=== PATIENT | male | born 1940 | race Caucasian/White ===

== ENCOUNTER 2018-05-23 19:46 | Inpatient (IN) | payer MEDICARE, MEDICAID ==
[~2018-05-23] VITALS: Ht 172.7 cm; Wt 86.8 kg
[2018-05-23] MEDS ORDERED: APIX2.5T PO (20:22)
[2018-05-23] MEDS ORDERED: HYDR100T28 PO (20:22)
[2018-05-23] MEDS ORDERED: MIRT15 PO (20:22)
[2018-05-23] MEDS ORDERED: PHOSLOC PO (20:22)
[2018-05-23] MEDS ORDERED: ASPI81TA39 PO (20:22)
[2018-05-23] MEDS ORDERED: AMLO-512 PO (20:22)
[2018-05-23] MEDS ORDERED: SEVE800 PO (20:22)
[2018-05-23] MEDS ORDERED: AMIO200T8 PO (20:22)
[2018-05-23 20:29] LABS: GLUCOSE,POINT OF CARE 197 MG/DL (70-110)
[2018-05-23] MEDS ORDERED: DEXTROSE 50%-WATER 25 GM/50 ML SYRINGE IVP ONE (20:30)
[2018-05-23 20:48] LABS: BASOPHILS % (AUTO) 0.4 % (0.0-2.0); EOSINOPHILS % (AUTO) 1.5 % (1.0-6.0); HEMATOCRIT 30.5 % (41-53); LYMPHOCYTES # (AUTO) 0.4 K/uL (1.0-4.8); LYMPHOCYTES % (AUTO) 5.4 % (22.0-44.0); MEAN CORPUSCULAR HGB CONC 32.9 G/dL (31.0-37.0); MEAN CORPUSCULAR VOLUME 98 fL (80-100); NEUTROPHILS # (AUTO) 6.6 K/uL (1.8-7.7); NEUTROPHILS % (AUTO) 80.7 % (40.0-70.0); PLATELET COUNT (AUTO) 119 K/uL (150-450); RED BLOOD CELL COUNT(AUTO) 3.13 MIL/uL (4.50-5.90); RED CELL DISTRIBUTION WIDTH 15.2 % (11.5-14.5)
[2018-05-23 20:57] LABS: CALCIUM, TOTAL 8.7 mg/dL (8.8-10.5); CREATININE 4.31 mg/dL (0.60-1.30); POTASSIUM 4.6 mmol/L (3.5-5.1)
[2018-05-23 21:02] LABS: PROTHROMBIN TIME 10.5 SEC (9.4-11.6)
[2018-05-23 21:21] LABS: ALBUMIN 2.7 g/dL (3.4-5.0); BILIRUBIN,TOTAL 0.3 mg/dL (0.1-1.0); TOTAL PROTEIN, SERUM 5.7 g/dL (6.4-8.2)
[2018-05-23 21:30] LABS: LACTIC ACID 0.9 mmol/L (0.4-2.0)
[2018-05-23 21:38] LABS: GLUCOSE,POINT OF CARE 101 MG/DL (70-110)
[2018-05-23 22:39] LABS: GLUCOSE,POINT OF CARE 54 MG/DL (70-110)
[2018-05-23] MEDS ORDERED: ONDANSETRON HCL 4 MG/2 ML VIAL IVP PRN ×2 (22:45→23:45)
[2018-05-23] MEDS ORDERED: ACETAMINOPHEN 325 MG TABLET PO PRN (22:45)
[2018-05-23] MEDS ORDERED: DEXTROSE 5%-0.45% SODIUM CHL 1,000 ML IV ONE (22:45)
[2018-05-23] MEDS ORDERED: 0.9% SODIUM CHLORIDE 10 ML SYRINGE IVP PRN ×2 (22:45→23:45)
[2018-05-23] MEDS ORDERED: DEXTROSE 10%-WATER 1,000 ML IV SCH (23:45)
[2018-05-23] MEDS ORDERED: ZOLPIDEM TARTRATE 5 MG TABLET PO PRN (23:45)
[2018-05-24] VITALS (7 sets, daily range): BP systolic 92–153; BP diastolic 36–67
[2018-05-24 01:18] LABS: GLUCOMETER DEV NAME(LOC) 5N.1; GLUCOSE,POINT OF CARE 100 MG/DL (70-110)
[2018-05-24] MEDS: APIXABAN 2.5 MG TABLET PO SCH ×3 (01:38→22:07)
[2018-05-24] MEDS: DEXTROSE 50%-WATER 25 GM/50 ML SYRINGE IVP PRN ×13 (03:17→23:03)
[2018-05-24 04:39] LABS: GLUCOMETER DEV NAME(LOC) 5N.1; GLUCOSE,POINT OF CARE 60 MG/DL (70-110)
[2018-05-24 04:39] LABS: GLUCOMETER DEV NAME(LOC) 5N.1; GLUCOSE,POINT OF CARE 95 MG/DL (70-110)
[2018-05-24 06:35] LABS: BASOPHILS % (AUTO) 0.2 % (0.0-2.0); EOSINOPHILS % (AUTO) 0.7 % (1.0-6.0); HEMATOCRIT 28.3 % (41-53); HEMOGLOBIN 9.3 g/dL (13.5-17.5); LYMPHOCYTES # (AUTO) 0.5 K/uL (1.0-4.8); LYMPHOCYTES % (AUTO) 4.9 % (22.0-44.0); MEAN CORPUSCULAR HGB CONC 32.9 G/dL (31.0-37.0); MEAN CORPUSCULAR VOLUME 97 fL (80-100); MONOCYTES # (AUTO) 1.2 K/uL (0.1-1.0); MONOCYTES % (AUTO) 11.3 % (2.0-9.0); NEUTROPHILS # (AUTO) 8.7 K/uL (1.8-7.7); NEUTROPHILS % (AUTO) 82.9 % (40.0-70.0); PLATELET COUNT (AUTO) 116 K/uL (150-450); RED BLOOD CELL COUNT(AUTO) 2.91 MIL/uL (4.50-5.90); RED CELL DISTRIBUTION WIDTH 15.3 % (11.5-14.5)
[2018-05-24 06:44] LABS: GLUCOMETER DEV NAME(LOC) 5N.1; GLUCOSE,POINT OF CARE 88 MG/DL (70-110)
[2018-05-24 06:44] LABS: GLUCOMETER DEV NAME(LOC) 5N.1; GLUCOSE,POINT OF CARE 37 MG/DL (70-110)
[2018-05-24 06:55] LABS: ALBUMIN 2.6 g/dL (3.4-5.0); BILIRUBIN,TOTAL 0.4 mg/dL (0.1-1.0); CALCIUM, TOTAL 8.7 mg/dL (8.8-10.5); CREATININE 4.8 mg/dL (0.60-1.30); POTASSIUM 4.7 mmol/L (3.5-5.1); TOTAL PROTEIN, SERUM 5.3 g/dL (6.4-8.2)
[2018-05-24] MEDS: SEVELAMER CARBONATE 800 MG TABLET PO SCH ×3 (08:00→17:28)
[2018-05-24] MEDS: CALCIUM ACETATE 667 MG CAPSULE PO SCH (08:00)
[2018-05-24] MEDS: PANTOPRAZOLE SODIUM 40 MG/VIAL IVP SCH (09:00)
[2018-05-24] MEDS: HydrALAZINE HCL 50 MG TABLET PO SCH ×3 (09:00→21:00)
[2018-05-24] MEDS: AmLODIPine BESYLATE 10 MG TABLET PO SCH (09:00)
[2018-05-24] MEDS: ASPIRIN 81 MG CHEWABLE TABLET PO SCH (09:00)
[2018-05-24] MEDS: AMIODARONE HCL 200 MG TABLET PO SCH (09:00)
[2018-05-24] MEDS: DEXTROSE 10%-WATER 1,000 ML IV PRN ×2 (11:35→22:57)
[2018-05-24] MEDS ORDERED: DEXTROSE 50%-WATER 25 GM/50 ML SYRINGE IVP ONE ×2 (11:54→12:20)
[2018-05-24 15:59] LABS: GLUCOSE,POINT OF CARE 68 MG/DL (70-110)
[2018-05-24 15:59] LABS: GLUCOSE,POINT OF CARE 62 MG/DL (70-110)
[2018-05-24 15:59] LABS: GLUCOSE,POINT OF CARE 108 MG/DL (70-110)
[2018-05-24 15:59] LABS: GLUCOSE,POINT OF CARE 52 MG/DL (70-110)
[2018-05-24 15:59] LABS: GLUCOSE,POINT OF CARE 33 MG/DL (70-110)
[2018-05-24 17:29] LABS: GLUCOSE,POINT OF CARE 43 MG/DL (70-110)
[2018-05-24 18:28] LABS: GLUCOSE,POINT OF CARE 77 MG/DL (70-110)
[2018-05-24 19:53] LABS: GLUCOSE,POINT OF CARE 79 MG/DL (70-110)
[2018-05-24] MEDS ORDERED: DIGOXIN 250 MCG/ML 2 ML AMP ONE (19:59)
[2018-05-24] MEDS: MIRTAZAPINE 15 MG TABLET PO SCH (21:00)
[2018-05-24 21:24] LABS: GLUCOSE,POINT OF CARE 44 MG/DL (70-110)
[2018-05-24 21:24] LABS: GLUCOSE,POINT OF CARE 36 MG/DL (70-110)
[2018-05-24 21:24] LABS: GLUCOSE,POINT OF CARE 38 MG/DL (70-110)
[2018-05-24 23:28] LABS: GLUCOSE,POINT OF CARE 62 MG/DL (70-110)
[2018-05-25] VITALS: BP 91/36
[2018-05-25] MEDS: DEXTROSE 50%-WATER 25 GM/50 ML SYRINGE IVP PRN ×15 (00:07→22:04)
[2018-05-25 00:19] LABS: GLUCOSE,POINT OF CARE 30 MG/DL (70-110)
[2018-05-25 00:19] LABS: GLUCOSE,POINT OF CARE 45 MG/DL (70-110)
[2018-05-25 01:19] LABS: GLUCOSE,POINT OF CARE 40 MG/DL (70-110)
[2018-05-25 02:14] LABS: GLUCOMETER DEV NAME(LOC) 5S.1; GLUCOSE,POINT OF CARE 38 MG/DL (70-110)
[2018-05-25 02:14] LABS: GLUCOMETER DEV NAME(LOC) 5S.1; GLUCOSE,POINT OF CARE 108 MG/DL (70-110)
[2018-05-25 02:14] LABS: GLUCOMETER DEV NAME(LOC) 5S.1; GLUCOSE,POINT OF CARE 63 MG/DL (70-110)
[2018-05-25 02:14] LABS: GLUCOMETER DEV NAME(LOC) 5S.1; GLUCOSE,POINT OF CARE 43 MG/DL (70-110)
[2018-05-25 02:14] LABS: GLUCOMETER DEV NAME(LOC) 5S.1; GLUCOSE,POINT OF CARE 58 MG/DL (70-110)
[2018-05-25 04:00] VITALS: BP 90/39
[2018-05-25 05:04] LABS: GLUCOSE,POINT OF CARE 49 MG/DL (70-110)
[2018-05-25 05:04] LABS: GLUCOSE,POINT OF CARE 52 MG/DL (70-110)
[2018-05-25 05:04] LABS: GLUCOSE,POINT OF CARE 36 MG/DL (70-110)
[2018-05-25 05:04] LABS: GLUCOSE,POINT OF CARE 51 MG/DL (70-110)
[2018-05-25 05:04] LABS: GLUCOSE,POINT OF CARE 64 MG/DL (70-110)
[2018-05-25 05:41] LABS: % IRON SATURATION 55.7 % (30-44)
[2018-05-25 06:59] LABS: GLUCOSE,POINT OF CARE 34 MG/DL (70-110)
[2018-05-25 07:17] LABS: BASOPHILS % (AUTO) 0.7 % (0.0-2.0); EOSINOPHILS % (AUTO) 2.5 % (1.0-6.0); HEMATOCRIT 26.8 % (41-53); HEMOGLOBIN 8.7 g/dL (13.5-17.5); LYMPHOCYTES # (AUTO) 0.9 K/uL (1.0-4.8); LYMPHOCYTES % (AUTO) 11.1 % (22.0-44.0); MEAN CORPUSCULAR HEMOGLOBIN 31.8 pg (26.0-34.0); MEAN CORPUSCULAR HGB CONC 32.6 G/dL (31.0-37.0); MEAN CORPUSCULAR VOLUME 98 fL (80-100); MONOCYTES # (AUTO) 1.2 K/uL (0.1-1.0); MONOCYTES % (AUTO) 14.8 % (2.0-9.0); NEUTROPHILS # (AUTO) 5.6 K/uL (1.8-7.7); NEUTROPHILS % (AUTO) 70.9 % (40.0-70.0); PLATELET COUNT (AUTO) 123 K/uL (150-450); RED BLOOD CELL COUNT(AUTO) 2.75 MIL/uL (4.50-5.90); RED CELL DISTRIBUTION WIDTH 15.5 % (11.5-14.5)
[2018-05-25 07:55] LABS: CALCIUM, TOTAL 8.5 mg/dL (8.8-10.5); CREATININE 6.1 mg/dL (0.60-1.30); POTASSIUM 4.3 mmol/L (3.5-5.1)
[2018-05-25 08:00] VITALS: BP 138/50
[2018-05-25] MEDS: PANTOPRAZOLE SODIUM 40 MG/VIAL IVP SCH (08:10)
[2018-05-25] MEDS: CALCIUM ACETATE 667 MG CAPSULE PO SCH (09:13)
[2018-05-25] MEDS: SEVELAMER CARBONATE 800 MG TABLET PO SCH ×3 (09:13→17:19)
[2018-05-25] MEDS: ASPIRIN 81 MG CHEWABLE TABLET PO SCH (09:13)
[2018-05-25] MEDS: APIXABAN 2.5 MG TABLET PO SCH ×2 (09:13→21:30)
[2018-05-25] MEDS: HydrALAZINE HCL 50 MG TABLET PO SCH ×2 (09:13→21:00)
[2018-05-25] MEDS: AmLODIPine BESYLATE 10 MG TABLET PO SCH (09:14)
[2018-05-25] MEDS: AMIODARONE HCL 200 MG TABLET PO SCH (09:14)
[2018-05-25 09:34] LABS: GLUCOSE,POINT OF CARE 41 MG/DL (70-110)
[2018-05-25 09:34] LABS: GLUCOSE,POINT OF CARE 43 MG/DL (70-110)
[2018-05-25] MEDS: DEXTROSE 10%-WATER 1,000 ML IV PRN (09:51)
[2018-05-25 09:54] LABS: GLUCOSE,POINT OF CARE 87 MG/DL (70-110)
[2018-05-25 10:38] LABS: GLUCOSE,POINT OF CARE 147 MG/DL (70-110)
[2018-05-25 12:00] VITALS: BP 110/44
[2018-05-25 12:34] LABS: GLUCOSE,POINT OF CARE 87 MG/DL (70-110)
[2018-05-25 12:34] LABS: GLUCOSE,POINT OF CARE 32 MG/DL (70-110)
[2018-05-25 13:38] LABS: GLUCOSE,POINT OF CARE 38 MG/DL (70-110)
[2018-05-25 13:54] LABS: C.DIFF GDH ANTIGEN, Stool Negative (Negative); C.DIFF TOXINS A&B, Stool Negative (Negative)
[2018-05-25 14:48] LABS: GLUCOSE,POINT OF CARE 52 MG/DL (70-110)
[2018-05-25 15:09] LABS: GLUCOSE,POINT OF CARE 76 MG/DL (70-110)
[2018-05-25 16:00] VITALS: BP 112/67
[2018-05-25 16:03] LABS: GLUCOSE,POINT OF CARE 45 MG/DL (70-110)
[2018-05-25] MEDS ORDERED: NALOXONE HCL 1 MG/ML 2 ML SYG IV ONE (16:49)
[2018-05-25] MEDS ORDERED: DEXTROSE 50%-WATER 25 GM/50 ML SYRINGE IVP ONE (16:49)
[2018-05-25] MEDS ORDERED: ETOMIDATE 2 MG/ML 10 ML VIAL IV ONE (16:49)
[2018-05-25] MEDS ORDERED: SUCCINYLCHOLINE CHLORIDE 20 MG/ML 10 ML VIAL IM ONE (16:49)
[2018-05-25 17:08] LABS: GLUCOSE,POINT OF CARE 93 MG/DL (70-110)
[2018-05-25 18:04] LABS: GLUCOSE,POINT OF CARE 75 MG/DL (70-110)
[2018-05-25 19:39] LABS: GLUCOSE,POINT OF CARE 54 MG/DL (70-110)
[2018-05-25 20:00] VITALS: BP_SYST 109; BP_SYST 97; BP_DIAS 28; BP_DIAS 39
[2018-05-25] MEDS: MIRTAZAPINE 15 MG TABLET PO SCH (21:30)
[2018-05-26] VITALS: BP 97/28
[2018-05-26 03:11] LABS: GLUCOSE,POINT OF CARE 67 MG/DL (70-110)
[2018-05-26 04:00] VITALS: BP 93/55
[2018-05-26 04:15] LABS: GLUCOSE,POINT OF CARE 56 MG/DL (70-110)
[2018-05-26 04:15] LABS: GLUCOSE,POINT OF CARE 99 MG/DL (70-110)
[2018-05-26 04:15] LABS: GLUCOSE,POINT OF CARE 100 MG/DL (70-110)
[2018-05-26 04:15] LABS: GLUCOSE,POINT OF CARE 121 MG/DL (70-110)
[2018-05-26 04:15] LABS: GLUCOSE,POINT OF CARE 89 MG/DL (70-110)
[2018-05-26 04:15] LABS: GLUCOSE,POINT OF CARE 92 MG/DL (70-110)
[2018-05-26 04:15] LABS: GLUCOSE,POINT OF CARE 71 MG/DL (70-110)
[2018-05-26 04:15] LABS: GLUCOSE,POINT OF CARE 89 MG/DL (70-110)
[2018-05-26 04:15] LABS: GLUCOSE,POINT OF CARE 101 MG/DL (70-110)
[2018-05-26 04:15] LABS: GLUCOSE,POINT OF CARE 127 MG/DL (70-110)
[2018-05-26 06:49] LABS: GLUCOSE,POINT OF CARE 137 MG/DL (70-110)
[2018-05-26 06:49] LABS: GLUCOSE,POINT OF CARE 120 MG/DL (70-110)
[2018-05-26 08:00] VITALS: BP 157/109
[2018-05-26] MEDS: CALCIUM ACETATE 667 MG CAPSULE PO SCH (08:20)
[2018-05-26] MEDS: PANTOPRAZOLE SODIUM 40 MG/VIAL IVP SCH (08:20)
[2018-05-26] MEDS: SEVELAMER CARBONATE 800 MG TABLET PO SCH ×3 (08:20→17:29)
[2018-05-26] MEDS: AMIODARONE HCL 200 MG TABLET PO SCH (08:21)
[2018-05-26] MEDS: APIXABAN 2.5 MG TABLET PO SCH ×2 (08:21→21:52)
[2018-05-26] MEDS: ASPIRIN 81 MG CHEWABLE TABLET PO SCH (08:23)
[2018-05-26] MEDS: AmLODIPine BESYLATE 10 MG TABLET PO SCH (09:00)
[2018-05-26] MEDS: HydrALAZINE HCL 50 MG TABLET PO SCH ×2 (09:00→21:00)
[2018-05-26 09:09] LABS: BASOPHILS % (AUTO) 0.3 % (0.0-2.0); EOSINOPHILS % (AUTO) 2.3 % (1.0-6.0); HEMATOCRIT 27.5 % (41-53); HEMOGLOBIN 8.9 g/dL (13.5-17.5); LYMPHOCYTES # (AUTO) 0.6 K/uL (1.0-4.8); LYMPHOCYTES % (AUTO) 11.1 % (22.0-44.0); MEAN CORPUSCULAR HEMOGLOBIN 31.5 pg (26.0-34.0); MEAN CORPUSCULAR HGB CONC 32.5 G/dL (31.0-37.0); MEAN CORPUSCULAR VOLUME 97 fL (80-100); MONOCYTES % (AUTO) 16.2 % (2.0-9.0); NEUTROPHILS # (AUTO) 4.1 K/uL (1.8-7.7); NEUTROPHILS % (AUTO) 70.1 % (40.0-70.0); PLATELET COUNT (AUTO) 126 K/uL (150-450); RED BLOOD CELL COUNT(AUTO) 2.84 MIL/uL (4.50-5.90); RED CELL DISTRIBUTION WIDTH 14.9 % (11.5-14.5)
[2018-05-26 09:29] LABS: GLUCOSE,POINT OF CARE 115 MG/DL (70-110)
[2018-05-26 09:29] LABS: GLUCOSE,POINT OF CARE 111 MG/DL (70-110)
[2018-05-26 09:31] LABS: CALCIUM, TOTAL 8.7 mg/dL (8.8-10.5); CREATININE 7.43 mg/dL (0.60-1.30); POTASSIUM 5.1 mmol/L (3.5-5.1)
[2018-05-26 10:38] LABS: GLUCOSE,POINT OF CARE 131 MG/DL (70-110)
[2018-05-26 11:08] LABS: GLUCOSE,POINT OF CARE 113 MG/DL (70-110)
[2018-05-26 12:00] VITALS: BP 165/110
[2018-05-26] MEDS ORDERED: SODIUM CHLORIDE 0.9% 2,000 ML IV ONE (12:31)
[2018-05-26 12:59] LABS: GLUCOSE,POINT OF CARE 122 MG/DL (70-110)
[2018-05-26 12:59] LABS: GLUCOSE,POINT OF CARE 136 MG/DL (70-110)
[2018-05-26 15:39] LABS: GLUCOSE,POINT OF CARE 116 MG/DL (70-110)
[2018-05-26 16:00] VITALS: BP 121/89
[2018-05-26 16:29] LABS: GLUCOSE,POINT OF CARE 119 MG/DL (70-110)
[2018-05-26] MEDS ORDERED: LORazepam 2 MG/ML VIAL ONE (17:40)
[2018-05-26] MEDS ORDERED: LORazepam 2 MG/ML VIAL IVP ONE (17:45)
[2018-05-26 18:29] LABS: CALCIUM, TOTAL 8.5 mg/dL (8.8-10.5); CREATININE 4.23 mg/dL (0.60-1.30); POTASSIUM 4.1 mmol/L (3.5-5.1)
[2018-05-26 21:16] LABS: GLUCOMETER DEV NAME(LOC) 5N.1; GLUCOSE,POINT OF CARE 126 MG/DL (70-110)
[2018-05-26] MEDS: MIRTAZAPINE 15 MG TABLET PO SCH (21:51)
[2018-05-26] MEDS: DEXTROSE 10%-WATER 1,000 ML IV PRN (23:09)
[2018-05-26 23:28] LABS: GLUCOMETER DEV NAME(LOC) 5S.1; GLUCOSE,POINT OF CARE 177 MG/DL (70-110)
[2018-05-27] VITALS (7 sets, daily range): BP systolic 114–159; BP diastolic 18–85
[2018-05-27 04:14] LABS: GLUCOMETER DEV NAME(LOC) 5S.1; GLUCOSE,POINT OF CARE 137 MG/DL (70-110)
[2018-05-27 06:10] LABS: BASOPHILS % (AUTO) 0.3 % (0.0-2.0); EOSINOPHILS % (AUTO) 1.1 % (1.0-6.0); HEMATOCRIT 26.5 % (41-53); HEMOGLOBIN 8.9 g/dL (13.5-17.5); LYMPHOCYTES # (AUTO) 0.5 K/uL (1.0-4.8); LYMPHOCYTES % (AUTO) 9.6 % (22.0-44.0); MEAN CORPUSCULAR HGB CONC 33.6 G/dL (31.0-37.0); MEAN CORPUSCULAR VOLUME 95 fL (80-100); MONOCYTES # (AUTO) 0.9 K/uL (0.1-1.0); MONOCYTES % (AUTO) 16.6 % (2.0-9.0); NEUTROPHILS # (AUTO) 3.8 K/uL (1.8-7.7); NEUTROPHILS % (AUTO) 72.4 % (40.0-70.0); PLATELET COUNT (AUTO) 147 K/uL (150-450); RED BLOOD CELL COUNT(AUTO) 2.78 MIL/uL (4.50-5.90); RED CELL DISTRIBUTION WIDTH 14.6 % (11.5-14.5)
[2018-05-27 06:28] LABS: ALBUMIN 2.7 g/dL (3.4-5.0); BILIRUBIN,TOTAL 0.4 mg/dL (0.1-1.0); CALCIUM, TOTAL 8.9 mg/dL (8.8-10.5); CREATININE 5.23 mg/dL (0.60-1.30); POTASSIUM 4.4 mmol/L (3.5-5.1); TOTAL PROTEIN, SERUM 5.9 g/dL (6.4-8.2)
[2018-05-27 07:23] LABS: GLUCOMETER DEV NAME(LOC) 5S.1; GLUCOSE,POINT OF CARE 135 MG/DL (70-110)
[2018-05-27] MEDS: CALCIUM ACETATE 667 MG CAPSULE PO SCH (08:22)
[2018-05-27] MEDS: ASPIRIN 81 MG CHEWABLE TABLET PO SCH (08:23)
[2018-05-27] MEDS: SEVELAMER CARBONATE 800 MG TABLET PO SCH ×3 (08:23→19:47)
[2018-05-27] MEDS: AMIODARONE HCL 200 MG TABLET PO SCH (08:23)
[2018-05-27] MEDS: APIXABAN 2.5 MG TABLET PO SCH ×2 (08:23→21:27)
[2018-05-27] MEDS: AmLODIPine BESYLATE 10 MG TABLET PO SCH (08:24)
[2018-05-27] MEDS: HydrALAZINE HCL 50 MG TABLET PO SCH ×2 (08:25→21:00)
[2018-05-27] MEDS: PANTOPRAZOLE SODIUM 40 MG/VIAL IVP SCH (08:25)
[2018-05-27] MEDS ORDERED: SODIUM CHLORIDE 0.9% 2,000 ML IV ONE (09:47)
[2018-05-27 19:01] LABS: PHOSPHORUS 3.4 mg/dL (2.5-4.9)
[2018-05-27 19:59] LABS: GLUCOMETER DEV NAME(LOC) 5N.1; GLUCOSE,POINT OF CARE 205 MG/DL (70-110)
[2018-05-27 19:59] LABS: GLUCOMETER DEV NAME(LOC) 5N.1; GLUCOSE,POINT OF CARE 273 MG/DL (70-110)
[2018-05-27] MEDS: MIRTAZAPINE 15 MG TABLET PO SCH (21:27)
[2018-05-28 05:02] VITALS: BP 150/56
[2018-05-28 05:39] LABS: GLUCOMETER DEV NAME(LOC) 5N.1; GLUCOSE,POINT OF CARE 200 MG/DL (70-110)
[2018-05-28] MEDS: DEXTROSE 10%-WATER 1,000 ML IV PRN (06:07)
[2018-05-28 08:20] VITALS: BP 159/69
[2018-05-28] MEDS: APIXABAN 2.5 MG TABLET PO SCH ×2 (09:00→20:39)
[2018-05-28] MEDS: HydrALAZINE HCL 50 MG TABLET PO SCH ×2 (09:00→20:37)
[2018-05-28] MEDS: CALCIUM ACETATE 667 MG CAPSULE PO SCH (09:00)
[2018-05-28] MEDS: PANTOPRAZOLE SODIUM 40 MG/VIAL IVP SCH (09:01)
[2018-05-28] MEDS: AmLODIPine BESYLATE 10 MG TABLET PO SCH (09:01)
[2018-05-28] MEDS: ASPIRIN 81 MG CHEWABLE TABLET PO SCH (09:01)
[2018-05-28] MEDS: SEVELAMER CARBONATE 800 MG TABLET PO SCH ×3 (09:01→18:48)
[2018-05-28] MEDS: AMIODARONE HCL 200 MG TABLET PO SCH (09:01)
[2018-05-28] MEDS ORDERED: ACETAMINOPHEN 325 MG TABLET PO PRN (10:45)
[2018-05-28 14:21] VITALS: BP 120/60
[2018-05-28] MEDS ORDERED: DEXTROSE 50%-WATER 25 GM/50 ML SYG IVP PRN (17:45)
[2018-05-28] MEDS ORDERED: GLUCAGON,HUMAN RECOMBINANT 1 MG VIAL IM PRN (17:45)
[2018-05-28] MEDS: INSULIN LISPRO 100 UNITS/ML SQ PRN (17:52)
[2018-05-28 20:00] VITALS: BP 109/60
[2018-05-28] MEDS: MIRTAZAPINE 15 MG TABLET PO SCH (20:39)
[2018-05-29 06:14] LABS: GLUCOMETER DEV NAME(LOC) 5S.1; GLUCOSE,POINT OF CARE 132 MG/DL (70-110)
[2018-05-29 06:14] LABS: GLUCOMETER DEV NAME(LOC) 5S.1; GLUCOSE,POINT OF CARE 192 MG/DL (70-110)
[2018-05-29 06:15] LABS: GLUCOMETER DEV NAME(LOC) 5S.1; GLUCOSE,POINT OF CARE 113 MG/DL (70-110)
[2018-05-29 06:15] LABS: GLUCOMETER DEV NAME(LOC) 5S.1; GLUCOSE,POINT OF CARE 166 MG/DL (70-110)
[2018-05-29 07:38] VITALS: BP 143/49
[2018-05-29] MEDS: HydrALAZINE HCL 50 MG TABLET PO SCH (09:00)
[2018-05-29] MEDS: PANTOPRAZOLE SODIUM 40 MG/VIAL IVP SCH (09:00)
[2018-05-29] MEDS: CALCIUM ACETATE 667 MG CAPSULE PO SCH (09:06)
[2018-05-29] MEDS: APIXABAN 2.5 MG TABLET PO SCH (09:07)
[2018-05-29] MEDS: SEVELAMER CARBONATE 800 MG TABLET PO SCH ×3 (09:07→18:01)
[2018-05-29] MEDS: AMIODARONE HCL 200 MG TABLET PO SCH (09:07)
[2018-05-29] MEDS: ASPIRIN 81 MG CHEWABLE TABLET PO SCH (09:07)
[2018-05-29] MEDS: AmLODIPine BESYLATE 10 MG TABLET PO SCH (09:07)
[2018-05-29 10:59] LABS: GLUCOMETER DEV NAME(LOC) 5N.1; GLUCOSE,POINT OF CARE 149 MG/DL (70-110)
[2018-05-29 10:59] LABS: GLUCOMETER DEV NAME(LOC) 5N.1; GLUCOSE,POINT OF CARE 149 MG/DL (70-110)
[2018-05-29 10:59] LABS: GLUCOMETER DEV NAME(LOC) 5N.1; GLUCOSE,POINT OF CARE 121 MG/DL (70-110)
[2018-05-29 10:59] LABS: GLUCOMETER DEV NAME(LOC) 5N.1; GLUCOSE,POINT OF CARE 152 MG/DL (70-110)
[2018-05-29 10:59] LABS: GLUCOMETER DEV NAME(LOC) 5N.1; GLUCOSE,POINT OF CARE 139 MG/DL (70-110)
[2018-05-29 11:27] VITALS: BP 159/55
[2018-05-29] MEDS: INSULIN LISPRO 100 UNITS/ML SQ PRN ×2 (11:58→18:03)
[2018-05-29 14:39] LABS: BASOPHILS % (AUTO) 0.8 % (0.0-2.0); EOSINOPHILS % (AUTO) 2.5 % (1.0-6.0); HEMATOCRIT 25.3 % (41-53); HEMOGLOBIN 8.4 g/dL (13.5-17.5); LYMPHOCYTES # (AUTO) 0.6 K/uL (1.0-4.8); LYMPHOCYTES % (AUTO) 16.6 % (22.0-44.0); MEAN CORPUSCULAR HEMOGLOBIN 31.7 pg (26.0-34.0); MEAN CORPUSCULAR HGB CONC 33.1 G/dL (31.0-37.0); MEAN CORPUSCULAR VOLUME 96 fL (80-100); MONOCYTES # (AUTO) 0.5 K/uL (0.1-1.0); MONOCYTES % (AUTO) 15.1 % (2.0-9.0); NEUTROPHILS # (AUTO) 2.3 K/uL (1.8-7.7); PLATELET COUNT (AUTO) 155 K/uL (150-450); RED BLOOD CELL COUNT(AUTO) 2.64 MIL/uL (4.50-5.90); RED CELL DISTRIBUTION WIDTH 14.5 % (11.5-14.5)
[2018-05-29 14:54] LABS: ALBUMIN 2.6 g/dL (3.4-5.0); CALCIUM, TOTAL 8.7 mg/dL (8.8-10.5); CREATININE 5.72 mg/dL (0.60-1.30); PHOSPHORUS 3.5 mg/dL (2.5-4.9); POTASSIUM 4.3 mmol/L (3.5-5.1)
[2018-05-29 16:12] VITALS: BP 111/48
[2018-05-29 21:24] LABS: GLUCOMETER DEV NAME(LOC) 5S.1; GLUCOSE,POINT OF CARE 143 MG/DL (70-110)
[2018-05-29 21:24] LABS: GLUCOMETER DEV NAME(LOC) 5S.1; GLUCOSE,POINT OF CARE 150 MG/DL (70-110)
== END 2018-05-29 18:50 | DRG 637 ==
LOC: EMS 19:48 → 5S 22:30 → ICU 05-24 11:24 → 5S 05-26 19:05
PROVIDERS: ADMIT Internal Medicine; ATTEND Internal Medicine
PROC: 5A09357 Assistance with Respiratory Ventilation, Less than 24 Consecutive Hours, Continuous Positive Airway Pressure (ICD-10-PCS; 2018-05-24)
PROC: 05HY33Z Insertion of Infusion Device into Upper Vein, Percutaneous Approach (ICD-10-PCS; principal; 2018-05-25)
PROC: B54MZZA Ultrasonography of Right Upper Extremity Veins, Guidance (ICD-10-PCS; 2018-05-25)
PROC: 5A09357 Assistance with Respiratory Ventilation, Less than 24 Consecutive Hours, Continuous Positive Airway Pressure (ICD-10-PCS; 2018-05-25)
PROC: 5A09357 Assistance with Respiratory Ventilation, Less than 24 Consecutive Hours, Continuous Positive Airway Pressure (ICD-10-PCS; 2018-05-26)
PROC: 5A1D70Z Performance of Urinary Filtration, Intermittent, Less than 6 Hours Per Day (ICD-10-PCS; 2018-05-26)
PROC: 5A1D70Z Performance of Urinary Filtration, Intermittent, Less than 6 Hours Per Day (ICD-10-PCS; 2018-05-27)
PROC: 5A1D70Z Performance of Urinary Filtration, Intermittent, Less than 6 Hours Per Day (ICD-10-PCS; 2018-05-28)
DX: E11.649 Type 2 diabetes mellitus with hypoglycemia without coma (principal); G93.41 Metabolic encephalopathy; I13.2 Hypertensive heart and chronic kidney disease with heart failure and with stage 5 chronic kidney disease, or end stage renal disease; I48.91 Unspecified atrial fibrillation; I25.10 Atherosclerotic heart disease of native coronary artery without angina pectoris; D63.1 Anemia in chronic kidney disease; E11.22 Type 2 diabetes mellitus with diabetic chronic kidney disease; E11.65 Type 2 diabetes mellitus with hyperglycemia; E21.0 Primary hyperparathyroidism; I48.2 Chronic atrial fibrillation; I50.9 Heart failure, unspecified; N17.9 Acute kidney failure, unspecified; N18.6 End stage renal disease; N25.81 Secondary hyperparathyroidism of renal origin; Z79.01 Long term (current) use of anticoagulants; Z86.73 Personal history of transient ischemic attack (TIA), and cerebral infarction without residual deficits; Z99.2 Dependence on renal dialysis
CPT/HCPCS: 36245; 36569; 70450; 76770; 76937; 82728; 82947; 83036; 83540; 83550; 83605; 83735; 83970; 84100; 84206; 84681; 87081; 87324; 87340; 87449; 92610; 93005; 94660; 99291; C9113; G0378; J0330; J1160; J2060; J2310; J2405; J3490; J7030